=== PATIENT | female | born 1965 ===

== ENCOUNTER 2017-01-19 12:28 | Emergency (ER) | payer OTHER ==
[2017-01-19 13:02] VITALS: BP 131/77
[2017-01-19] MEDS ORDERED: Lidocaine 1% MPF* 2 ML VIAL ONE (13:32)
--- NOTE | 2017-01-31 12:31 | UC ---
I, Oh,Soohymadisyn, scribed for Yadira Ashby DO on 01/19/17 at 1331 . Skin Complaint HPI - HPI Summary HPI Summary: This 51 y/o female presents to [facility] with LUE hand laceration. 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 Laceration is linear and 2.5 cm. Pt had the laceration bandaged by facility nurse, and bleeding is currently well controlled. Compression makes the pain better. She denies any PMHx. FHx is positive for DM and HTN. She is nonsmoker. R/b/a of skin adhesive vs sutures is discussed for laceration repair. Pt is agreeable to stitching at this moment. - History of Current Complaint Chief Complaint: UCLaceration Time Seen by Provider: 01/19/17 13:19 Stated Complaint: HAND LACERATION Hx Obtained From: Patient Onset/Duration: Still Present Skin Exposure Onset/Duration: Hours Ago Timing: Constant Onset Severity: Mild Current Severity: Mild Location: Hand (Left) Aggravating: Nothing Alleviating: Other - compression Associated Signs & Symptoms: Positive: Negative. Negative: Nausea, Vomiting, Fever, Chest Pain - Allergy/Home Medications Allergies/Adverse Reactions: Allergies Allergy/AdvReac Type Severity Reaction Status Date / Time grass Allergy Itching Uncoded 01/19/17 13:02 Review of Systems Constitutional: Negative Skin: Other - linear laceration on LUE MIP joint of #1 digit Eyes: Negative ENT: Negative Respiratory: Negative Cardiovascular: Negative Gastrointestinal: Negative Genitourinary: Negative Motor: Negative Neurovascular: Negative Musculoskeletal: Negative Neurological: Negative Psychological: Negative All Other Systems Reviewed And Are Negative: Yes PMH/Surg Hx/FS Hx/Imm Hx Endocrine History Of: Denies: Diabetes, Thyroid Disease Cardiovascular History Of: Denies: Cardiac Disorders, Hypertension Respiratory History Of: Denies: COPD, Asthma GI/ History Of: Denies: Ulcer - Surgical History Surgical History: Yes Surgery Procedure, Year, and Place: Tonsils/adenoids out; nasal polyps - Family History Known Family History: Positive: Hypertension Negative: Cardiac Disease, Diabetes - Social History Alcohol Use: None Substance Use Type: None Smoking Status (MU): Never Smoked Tobacco Have You Smoked in the Last Year: No Physical Exam Triage Information Reviewed: Yes Appearance: Well-Appearing, No Pain Distress, Well-Nourished Vital Signs: Initial Vital Signs Temp 99.4 F 01/19/17 12:52 Pulse 87 01/19/17 12:52 Resp 18 01/19/17 12:52 BP 131/77 01/19/17 12:52 Pulse Ox 100 01/19/17 12:52 Vital Signs Reviewed: Yes Eyes: Positive: Conjunctiva Clear. Negative: Discharge ENT: Positive: Hearing grossly normal. Negative: Muffled/hoarse voice Neck exam: Normal Neck: Positive: Supple Respiratory: Positive: Lungs clear, Normal breath sounds, No respiratory distress, No accessory muscle use Cardiovascular: Positive: RRR, No Murmur Musculoskeletal Exam: Normal Musculoskeletal: Positive: ROM Intact Neurological: Positive: Alert, Muscle Tone Normal Psychological: Positive: Normal Response To Family, Age Appropriate Behavior Skin Exam: Normal, Other - warm, dry, color nml Skin: Positive: Other - 2 cm linear laceration over #1 digit MCP joint, superficial. Laceration Repair - Laceration Repair 1 Description: Linear Laceration Size After Repair: Length (cm) - 2.cm, Width (mm) - 1, Depth (mm) - 1 Modified For Repair: No Type Injection: Local Anesthesia Used: 1.0% Lido Cleansing Completed Via Routine Prep: Yes Irrigation With Pressure Irrigation Device: Yes Closure Material: Sutures - x4 Closure Method: Single Layer Suture Of: Skin Suture Type: Nylon - 4-0 Course/Dx - Diagnoses Provider Diagnoses: 1) Hand laceration Discharge - Discharge Plan Condition: Stable Disposition: HOME Patient Education Materials: Laceration (ED) Referrals: No Primary Care Phys,NOPCP [Primary Care Provider] - Additional Instructions: FOLLOW-UP CARE: Follow up in 7 days for suture removal. AND You should establish with a private physician for follow-up care. If you are unable to get a timely appointment, or if you are worsening, call us or return for re-evaluation. An additional resource available to assist in finding the appropriate physician for your health care needs is the [facility]erral Center. You may contact them by calling [phone]. The documentation as recorded by the Heladio alberto Soohyun accurately reflects the service I personally performed and the decisions made by , Yadira Ashby DO.
== END 2017-01-19 14:58 | disposition home or self-care (01) ==
LOC: UCEAST 12:28
DX: S61.412A Laceration without foreign body of left hand, initial encounter (principal); W45.8XXA Other foreign body or object entering through skin, initial encounter; Y93.9 Activity, unspecified; Y92.63 Factory as the place of occurrence of the external cause; Y99.0 Civilian activity done for income or pay
CPT/HCPCS: 12001; 99211; 99212; G0463